=== PATIENT | female | born 1965 | race Caucasian/White ===

== ENCOUNTER 2025-06-10 06:33 | Day surgery (SDC) | payer OTHER ==
[2025-06-06 16:49] VITALS: BMI 26.5
[2025-06-10] MEDS ORDERED: ONDANSETRON 4 MG/2 ML VIAL IVPUSH PRN ×2 (09:12→13:19)
[2025-06-10] MEDS ORDERED: PROPOFOL 20 ML ONE (09:28)
[2025-06-10] MEDS ORDERED: MIDAZOLAM HCL 2 MG/2 ML SINGLE DOSE VIAL ONE (09:29)
[2025-06-10] MEDS ORDERED: DEXAMETHASONE SOD PHOSPHATE 4 MG/1 ML VIAL ONE (09:29)
[2025-06-10] MEDS: LACTATED RINGERS SOLUTION 1,000 ML IV SCH (11:03)
[2025-06-10] MEDS ORDERED: ACETAMINOPHEN INJECTION 100 ML ONE (11:31)
[2025-06-10] MEDS: ACETAMINOPHEN 1000 MG/100 ML BAG IVPB ONE (11:35)
[2025-06-10 12:57] VITALS: RESP 20; TEMP 97.3
[2025-06-10 13:01] VITALS: BP 120/71; PULSE 69
[2025-06-10] MEDS ORDERED: PROMETHAZINE HCL 25 MG/1 ML VIAL IVPB PRN (13:19)
[2025-06-10] MEDS ORDERED: LACTATED RINGERS SOLUTION 1,000 ML IV SCH (13:30)
== END 2025-06-10 12:40 | disposition home or self-care (01) ==
LOC: JASU-SURG 06:33
PROVIDERS: ATTEND Obstetrics & Gynecology
PROC: 0UB98ZZ Excision of Uterus, Via Natural or Artificial Opening Endoscopic (ICD-10-PCS; principal; 2025-06-10 09:00)
DX: N84.0 Polyp of corpus uteri (principal)
CPT/HCPCS: 88305-TC; 88341-TC; 88342-TC; 94760